=== PATIENT | female | born 2005 | race Caucasian/White ===

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

== ENCOUNTER 2023-03-27 13:14 | Emergency (ER) | payer OTHER ==
[~2023-03-27] VITALS: Ht 160 cm; Wt 73.0 kg
[~2023-03-27 13:14] MED LIST: CYCL-1 PO; IBUP-1986 PO
[2023-03-27 13:29] VITALS: BP 135/90
[2023-03-27] MEDS ORDERED: cephalexin 500mg capsule PO ONE (13:45)
[2023-03-27] MEDS ORDERED: CEPH500C2 PO (14:18)
== END 2023-03-27 14:23 | disposition home or self-care (01) ==
LOC: ER 13:14
DX: L03.012 Cellulitis of left finger (principal); Z88.8 Allergy status to other drugs, medicaments and biological substances
CPT/HCPCS: 99283